=== PATIENT | female | born 1945 | race Caucasian/White ===

== ENCOUNTER → 2021-01-06 | Outpatient (CLI) | payer MEDICARE, SELFPAY ==
[~2021-01-06] MED LIST: ASPIRIN CHEWABL81 MG PO; HYDROXYZINE HCL10 MG PO; IMDUR ER TAB 6060 MG PO; NITROSTAT0.4 MG SL; NORVASC2.5 MG PO; PROTONIX40 MG PO; PROZAC40 MG PO; ULTRAM50 MG PO; XANAX1 MG PO; XIFAXAN200 MG PO
== END ==
LOC: HEART 5 08:18
DX: I48.0 Paroxysmal atrial fibrillation (principal); R06.02 Shortness of breath; I08.3 Combined rheumatic disorders of mitral, aortic and tricuspid valves; R93.1 Abnormal findings on diagnostic imaging of heart and coronary circulation
CPT/HCPCS: 93306

== ENCOUNTER 2021-01-22 11:57 | Emergency (ER) | payer MEDICARE, SELFPAY | END 2021-01-22 14:30 | disposition home or self-care (01) | LOC: ER1 11:57 | DX: S52.512A Displaced fracture of left radial styloid process, initial encounter for closed fracture (principal); S02.40CA Maxillary fracture, right side, initial encounter for closed fracture; S02.31XA Fracture of orbital floor, right side, initial encounter for closed fracture; S16.1XXA Strain of muscle, fascia and tendon at neck level, initial encounter; Z79.01 Long term (current) use of anticoagulants; Z79.899 Other long term (current) drug therapy; Z95.1 Presence of aortocoronary bypass graft; W01.0XXA Fall on same level from slipping, tripping and stumbling without subsequent striking against object, initial encounter | CPT/HCPCS: 70450; 70486; 72072; 72125; 73130; 99284 ==

== ENCOUNTER → 2021-11-25 | Outpatient (CLI) | payer MEDICARE | LOC: KOH-I 09:19 | DX: S02.32XD Fracture of orbital floor, left side, subsequent encounter for fracture with routine healing (principal) | CPT/HCPCS: 70450; 70480 ==

== ENCOUNTER → 2022-02-01 | Outpatient (CLI) | payer MEDICARE | LOC: HEART 5 07:31 | DX: I20.9 Angina pectoris, unspecified (principal) | CPT/HCPCS: 78452; A9502; J2785 ==